=== PATIENT | male | born 1940 | race Caucasian/White ===

== ENCOUNTER 2021-07-19 15:27 | Emergency (ER) | payer OTHER ==
[2021-07-19 16:25] LABS: BASOPHIL 0.3 % (0-2); EOSINOPHIL 0.8 % (0-7); HCT 40.1 % (42.0-52.0); HGB 13.1 g/dl (13.2-18.0); LYMPHOCYTE 13.3 % (15-48); MCH 31.7 pg (25.0-31.0); MCHC 32.7 g/dL (32.0-36.0); MCV 97.1 fL (78.0-100.0); MONOCYTE 8.7 % (0-12); MPV 10.7 fL (6.0-9.5); NEUTROPHIL 76.5 % (41-80); NRBC 0; PLT 171 K/uL (150-400); RBC 4.13 M/uL (4.70-6.00); RDW 15.1 % (11.5-14.0)
[2021-07-19 16:35] LABS: INR 1.04 (0.9-1.2); PTT 23.8 SECONDS (24.4-34.7)
[2021-07-19 16:44] LABS: ALBUMIN 3.1 g/dL (3.4-5.0); BILIRUBIN - TOTAL 0.6 mg/dL (0.2-1.0); BUN/CREAT RATIO (CALC) 16.9 RATIO; CREATININE 1.72 mg/dL (0.67-1.17); GLOBULIN (CALCULATION) 3.2 g/dL; POTASSIUM 3.7 mmol/L (3.5-5.1); TOTAL PROTEIN 6.3 g/dL (6.4-8.2)
== END 2021-07-19 19:15 | disposition other institution (70) ==
LOC: FER 15:27
PROVIDERS: Emergency Medicine
DX: I71.01 Dissection of thoracic aorta (principal); I31.3 Pericardial effusion (noninflammatory)
CPT/HCPCS: 36415; 71275; 80053; 84484; 85025; 85379; 85610; 85730; 93005; Q9967